=== PATIENT | female | born 1945 ===

== ENCOUNTER 2019-11-08 18:17 | Emergency (ER) | payer MEDICARE ==
--- OUTSIDE RECORDS SUMMARY | 2019-11-08 18:23 | XMS REPORT | Continuity of Care Document ---
:1945 External Reference #:[id number] Author Name ANJEL Mercedes (transmitted by agent of provider Lachelle Robles) Address [address] [place] [address] Care Team Providers Name Role Phone Karen Pack PA - Physician Filter Cleaner Care Team Information Manager Of Case Management Problems Active Problems Provider Date Allergic rhinitis Onset: 09/15/2018 Osteoarthritis Onset: 09/15/2018 Pain in limb Onset: 09/15/2018 Gastro-esophageal reflux disease with esophagitis Onset: 09/15/2018 Muscle weakness Onset: 12/30/2011 Benign essential hypertension Onset: 12/30/2011 Constipation Onset: 12/30/2011 Depressive disorder Onset: 12/30/2011 Anxiety state Onset: 12/30/2011 Bipolar I disorder Onset: 12/30/2011 Transient cerebral ischemia Onset: 12/30/2011 Panic disorder without agoraphobia Onset: 12/30/2011 Social History Type Date Description Comments Sex Unknown ETOH Use Denies alcohol use Tobacco Use Start: Unknown End: Patient is a former Staert Date:1959 Unknown smoker End Date:1974 Age 17 years Smoking Status Reviewed: 06/27/19 Patient is a former Staert Date:1959 smoker End Date:1974 Age 17 years Exercise Exercises rarely Type/Frequency Tattoo/Piercing Pierced ears Tattoo/Piercing Tattoo 1 left ankle Allergies, Adverse Reactions, Alerts Active Allergies Reaction Severity Comments Date Penicillin 09/30/2018 Sulfa Antibiotics 09/30/2018 Cephalexin 09/30/2018 Ciprofloxacin 09/30/2018 Medications Active Medications SIG Qnty Indications Ordering Date Provider Rosuvastatin Calcium Take One 30tabs Cristi 06/27/2018 10mg Tablets Tablet By MD Gagan Mouth Every Day Verapamil HCL ER Take One 90tabs Cristi 05/23/2012 180mg Tablets ER Tablet By MD Gagan Mouth Every Day Cetirizine HCL 1 po qd 30tabs Unknown 10mg Tablets Aspirin Ec 1 po qd 90tabs Unknown 325mg Tablets Hydrochlorothiazide Take One 90tabs Cristi 25mg Tablets Tablet By MD Gagan Mouth Every Day Multi For Her 1 po qd 90tabs Unknown Tablets Sertraline HCL 2 po qd Unknown 100mg Tablets Wellbutrin SR 1 po bid 60tabs Unknown 150mg Tablets ER 12HR History Medications Azithromycin take 2 pills 6tabs H66.92 Cristi Farah 10/17/2019 - 250mg by mouth on 10/26/2019 Tablets day 1, and then 1 pill by mouth x 4 days Immunizations CPT Code Status Date Vaccine Lot # [id number] Given 07/03/2019 Pneumonia Vaccine 97966 Given 07/03/2019 Fluzone High Dose 24517 Given 06/16/2018 Fluzone High Dose 80495 Given 06/28/2017 Pneumococcal Conjugate Vaccine 13 Valent For Intramuscular Use 05527 Given 06/28/2017 Fluzone High Dose 36456 Given 09/01/2016 Fluzone High Dose 26951 Given 08/31/2015 Zoster (Zostavax) 36111 Given 06/26/2015 Fluzone High Dose 86995 Given 08/27/2014 Fluzone High Dose 30963 Given 07/26/2013 Fluzone High Dose 04144 Given 07/25/2012 Fluzone High Dose 12685 Given 06/03/2011 Influenza Virus 3Yrs & Over 60429 Given 07/16/2010 Influenza Virus 3Yrs & Over 97201 Given 03/19/2010 Tdap - Tetanus/Diptheria/Acellular Pertussis 57090 Given 08/14/2009 Administration Swine Flu Shot 05799 Given 07/30/2008 Influenza Virus 3Yrs & Over 33633 Given 08/22/2007 Pneumonia Vaccine 48247 Given 08/01/2007 Influenza Virus 3Yrs & Over 45046 Given 08/12/2006 Influenza Virus 3Yrs & Over 66171 Given 07/21/2005 Influenza Virus 3Yrs & Over 62185 Given 10/22/2004 Influenza Virus 3Yrs & Over 27027 Given 07/18/2003 Influenza Virus 3Yrs & Over 07883 Given 08/24/2001 Influenza Virus 3Yrs & Over 80768 Given 03/12/1997 DT Vaccine Younger Than 7 Yrs Vital Signs Date Vital Result Comment 10/26/2019 2:02pm Weight 205.12 lb BP Systolic Sitting 126 mmHg BP Diastolic Sitting 70 mmHg 10/17/2019 10:38am Heart Rate 70 /min BP Systolic 110 mmHg BP Diastolic 70 mmHg Body Temperature 96.8 F O2 % BldC Oximetry 98 % Results Description No Information Available Procedures Date Code Description Status 05/25/2019 756151980 Diabetic Retinal Eye Exam Completed 05/23/2018 [id number] Diabetic Retinal Eye Exam Completed 09/29/2017 [id number] Mammogram Completed 10/19/2005 [id number] Diabetic Foot Exam Completed Medical Devices Description No Information Available Encounters Type Date Location Provider Dx Diagnosis Office Visit 10/17/2019 [facility] Kay Esparza, H66.92 Otitis media, 10:38a Walk-in at [place] [facility] unspecified, left Drugs ear R01.1 Cardiac murmur, unspecified Office Visit 06/21/2019 1:00p [facility] ANJEL Mercedes I10 Essential (primary) hypertension E78.5 Hyperlipidemia, unspecified M19.90 Unspecified osteoarthritis, unspecified site R73.9 Hyperglycemia, unspecified Assessments Date Code Description Provider 10/26/2019 I10 Essential (primary) hypertension ANJEL Mercedes 10/26/2019 E78.5 Hyperlipidemia, unspecified ANJEL Mercedes 10/26/2019 M19.90 Unspecified osteoarthritis, unspecified site ANJEL Mercedes 10/26/2019 R73.9 Hyperglycemia, unspecified ANJEL Mercedes 10/17/2019 H66.92 Otitis media, unspecified, left ear Kay Esparza PA-C 10/17/2019 R01.1 Cardiac murmur, unspecified Kay Esparza PA-C 06/21/2019 I10 Essential (primary) hypertension ANJEL Mercedes 06/21/2019 E78.5 Hyperlipidemia, unspecified ANJEL Mercedes 06/21/2019 M19.90 Unspecified osteoarthritis, unspecified site ANJEL Mercedes 06/21/2019 R73.9 Hyperglycemia, unspecified ANJEL Mercedes Plan of Treatment Future Appointment(s):01/25/2020 2:00 pm - ANJEL Mercedes at [facility] - GASTON Mercedes Essential (primary) [id number] Hyperlipidemia , [id number] Unspecified osteoarthritis, unspecified siteR73.9 Hyperglycemia, unspecifiedNew Labs:Basic Metabolic Panel, Ordered: Hemoglobin A1c (Glyco HGB), Ordered: 10/26/19Liver Function Panel, Ordered: Lipid Profile (Trig/Chol/HDL), Ordered: 10/26/19 Functional Status Functional Condition Comment Date Status Bifocal glasses Active Rolling walker is used to ambulate Active Mental Status Description No Information Available Referrals Description No Information Available
[2019-11-08 19:56] VITALS: BP 172/81
--- NOTE | 2019-11-08 20:40 | UC ---
Ear Complaint HPI - HPI Summary HPI Summary: 74-year-old woman comes in with the chief complaint of right ear pain. Pain started yesterday. She reports a stabbing pain. Denies any fevers or chills or sore throat. No known trauma. Does not have hearing aids. - History of Current Complaint Chief Complaint: UCEar Stated Complaint: R EAR PAIN Time Seen by Provider: 11/08/19 20:31 Pain Intensity: 9 - Allergies/Home Medications Allergies/Adverse Reactions: Allergies Allergy/AdvReac Type Severity Reaction Status Date / Time cephalexin [From Keflex] Allergy Unknown Verified 11/08/19 19:54 Reaction Details ciprofloxacin [From Cipro] Allergy Unknown Verified 11/08/19 19:54 Reaction Details Penicillins Allergy See Comment Verified 11/08/19 19:54 Sulfa (Sulfonamide Allergy Hives Verified 11/08/19 19:54 Antibiotics) Home Medications: Home Medications BuPROPion XL* [Bupropion XL*] 300 mg PO DAILY 11/08/19 [History Confirmed ] Hydrochlorothiazide TAB* [Hydrodiuril TAB*] 25 mg PO DAILY 11/08/19 [History Confirmed 11/08/19] QUEtiapine TAB* [Seroquel 100 MG *] 100 mg PO DAILY 11/08/19 [History Confirmed 11/08/19] Rosuvastatin Calcium 10 mg PO DAILY 11/08/19 [History Confirmed 11/08/19] Sertraline* [Zoloft*] 100 mg PO DAILY 11/08/19 [History Confirmed 11/08/19] Verapamil SR CAP* [Calan Sr CAP*] 180 mg PO DAILY 11/08/19 [History Confirmed ] PMH/Surg Hx/FS Hx/Imm Hx Previously Healthy: Yes - Surgical History Surgical History: Yes Surgery Procedure, Year, and Place: TONSILECTOMY, C SECTION, CERVICAL FUSION - Family History Known Family History: Positive: Non-Contributory - Social History Alcohol Use: None Substance Use Type: None Smoking Status (MU): Former Smoker When Did the Patient Quit Smoking/Using Tobacco: age 30 Review of Systems All Other Systems Reviewed And Are Negative: Yes Constitutional: Positive: Negative Skin: Positive: Negative Eyes: Positive: Negative ENT: Positive: Ear Ache Respiratory: Positive: Negative Cardiovascular: Positive: Negative Gastrointestinal: Positive: Negative Motor: Positive: Negative Neurovascular: Positive: Negative Musculoskeletal: Positive: Negative Neurological/Mental Status: Positive: Negative Psychological: Positive: Negative Is Patient Immunocompromised?: No Physical Exam Triage Information Reviewed: Yes Appearance: Well-Appearing, Well-Nourished, Pain Distress - MILD WITH EXAM OF RIGHT EAR Vital Signs: Initial Vital Signs Temp 97.6 F 11/08/19 19:52 Pulse 63 11/08/19 19:52 Resp 20 11/08/19 19:52 BP 172/81 11/08/19 19:52 Pulse Ox 97 11/08/19 19:52 Vital Signs Reviewed: Yes Eye Exam: Normal Eyes: Positive: Conjunctiva Clear ENT: Positive: Pharynx normal, Other - Right ear canal does have some debris in it. The TM itself appears normal although it may have clear fluid behind it. Left ear canal and TM are normal. Neck: Positive: Supple Respiratory: Positive: Lungs clear, Normal breath sounds, No respiratory distress Cardiovascular: Positive: RRR Musculoskeletal: Positive: Strength Intact, ROM Intact Neurological: Positive: Alert, Muscle Tone Normal Psychological: Positive: Age Appropriate Behavior Skin Exam: Normal Ear Complaint Course/Dx - Course Course Of Treatment: Given the pain in the right ear with some debris in the ear canal we'll treat for otitis externa. Potential for serous otitis media also will treat with oral doxycycline. Patient would like to follow-up with ENT [place] and [place] site gave her the names of the ENT here and [place]. To get reevaluated sooner if worsening questions or concerns. - Differential Dx/Diagnosis Provider Diagnosis: Right ear pain Discharge ED - Sign-Out/Discharge Documenting (check all that apply): Patient Departure All imaging exams completed and their final reports reviewed: No Studies - Discharge Plan Condition: Stable Disposition: HOME Prescriptions: DOXYcycline CAP(*) [DOXYcycline 100MG CAP(*)] 100 mg PO BID #20 cap Neomyc/Polym/HC 1% OTIC SUSP* [Cortisporin Otic Susp 1%*] 4 drop RIGHT EAR QID # 1 btl Patient Education Materials: Earache (ED) Referrals: Karen Pack PA [Primary Care Provider] - Jeromy Rivera MD [Medical Doctor] - Jack Pimentel MD [Medical Doctor] - Wayne Garcia MD [Medical Doctor] - Additional Instructions: FOLLOW UP WITH ENT IF NOT COMPLETELY IMPROVED. GET REEVALUATED SOONER IF NOT IMPROVED OR WORSE OR ANY QUESTIONS OR CONCERNS. - Billing Disposition and Condition Condition: STABLE Disposition: Home
[2019-11-08] MEDS ORDERED: DOXYcycline CAP(*) 100 MG PO ONE (20:41)
[2019-11-08] MEDS ORDERED: Neomyc/Polym/HC 1% OTIC SUSP* **OTIC RIGHT EAR ONE (20:41)
== END 2019-11-08 21:03 | disposition home or self-care (01) ==
LOC: UCCORT 18:17
DX: H92.01 Otalgia, right ear (principal); H60.91 Unspecified otitis externa, right ear; Z88.0 Allergy status to penicillin; Z88.1 Allergy status to other antibiotic agents; Z88.2 Allergy status to sulfonamides; Z87.891 Personal history of nicotine dependence
CPT/HCPCS: 99212; A9270-GY; G0463